=== PATIENT | female | born 1995 ===

== ENCOUNTER 2017-01-11 17:54 | Emergency (ER) | payer SELFPAY ==
[2017-01-11 18:00] VITALS: RESP 16; TEMP 98; O2SAT 100
[2017-01-11] MEDS ORDERED: Sodium Chloride 0.9% 1,000 ML IV STA (18:53)
--- NOTE | 2017-01-11 18:55 | ED PDOC ---
HPI: Psych/Substance Abuse Time Seen by Provider: 01/11/17 18:40 Chief Complaint (Nursing): Substance Abuse Chief Complaint (Provider): weakness History Per: Patient (21 y/o female here for feeling unwell after consumption of cookie baked with thc. Notes mild abdominal pain. Denies any vomiting. Denies any other co-ingestion.) Past Medical History Reviewed: Historical Data, Nursing Documentation, Vital Signs Vital Signs: Last Vital Signs Temp 98.0 F 01/11/17 17:58 Pulse 119 H 01/11/17 17:58 Resp 16 01/11/17 17:58 BP 109/63 01/11/17 17:58 Pulse Ox 100 01/11/17 17:58 - Family History Family History: States: Unknown Family Hx - Immunization History Hx Tetanus Toxoid Vaccination: No Hx Influenza Vaccination: Yes Hx Pneumococcal Vaccination: No - Home Medications Home Medications: Ambulatory Orders Medication Instructions Recorded Acetaminophen/Codeine 2 tab PO Q6H #20 tab 08/16/16 [Tylenol/Codeine 300 MG/30 MG] - Allergies Allergies/Adverse Reactions: Allergies Allergy/AdvReac Type Severity Reaction Status Date / Time No Known Allergies Allergy Verified 08/16/16 15:59 Review of Systems ROS Statement: Except As Marked, All Systems Reviewed And Found Negative Gastrointestinal: Positive for: Abdominal Pain Physical Exam - Reviewed Nursing Documentation Reviewed: Yes Vital Signs Reviewed: Yes - Physical Exam Appears: Positive for: Well, Non-toxic, No Acute Distress Head Exam: Positive for: ATRAUMATIC, NORMAL INSPECTION, NORMOCEPHALIC Skin: Positive for: Normal Color, Warm, DRY Eye Exam: Positive for: EOMI, Normal appearance, PERRL ENT: Positive for: Normal ENT Inspection Neck: Positive for: Normal, Painless ROM Cardiovascular/Chest: Positive for: Regular Rate, Rhythm Respiratory: Positive for: CNT, Normal Breath Sounds Gastrointestinal/Abdominal: Positive for: Normal Exam, Bowel Sounds, Soft Back: Positive for: Normal Inspection Extremity: Positive for: Normal ROM Neurologic/Psych: Positive for: Alert, Oriented - Laboratory Results Result Diagrams: 01/11/17 19:26 01/11/17 19:26 - ECG O2 Sat by Pulse Oximetry: 100 Disposition - Clinical Impression Clinical Impression: Marijuana use - Patient ED Disposition Is Patient to be Admitted: Transfer of Care - Disposition Disposition: Transfer of Care Disposition Time: 20:00 Condition: STABLE Instructions: Cannabis Abuse (ED) Forms: [facility] (Greenlandic) Patient Signed Over To: Shaista Sumner Handoff Comments: PENDING LABS/EKG/URINE PREG/RE-EVALUATION/IMPROVEMENT OF TACHYCARDIA
[2017-01-11 19:29] LABS: BASO % 0.5 % (0.0-2.0); EOS % 0.3 % (0.0-4.0); HEMATOCRIT 40.2 % (34.0-47.0); LYMPH # 1.1 K/uL (1.0-4.3); LYMPH % 14.2 % (20.0-40.0); MEAN CELL VOLUME 87.1 fl (81.0-99.0); MEAN CORPUSCULAR HEMOGLOBIN 29.7 pg (27.0-31.0); MEAN CORPUSCULAR HGB CONC 34.1 g/dL (33.0-37.0); MEAN PLATELET VOLUME 9.4 fl (7.2-11.7); MONO # 0.5 K/uL (0.0-0.8); MONO % 7.1 % (0.0-10.0); NEUT # 5.9 K/uL (1.8-7.0); NEUT % 77.9 % (50.0-75.0); WHITE BLOOD COUNT 7.6 K/uL (4.8-10.8)
[2017-01-11 19:40] LABS: ALB/GLOB RATIO 1.4 (1.0-2.1); ALCOHOL SERUM < 10 mg/dl (0-10); ALKALINE PHOSPHATASE 63 U/L (38-126); ALT/SGPT 29 U/L (9-52); AST/SGOT 19 U/L (14-36); BILIRUBIN,TOTAL 0.3 mg/dl (0.2-1.3); BLOOD UREA NITROGEN 18 mg/dl (7-17); CALCIUM 8.8 mg/dL (8.4-10.2); CARBON DIOXIDE 22 mmol/L (22-30); CHLORIDE 103 mmol/L (98-107); GFR AFRICAN-AMERICAN > 60; GLUCOSE,RANDOM 139 mg/dL (65-105); MAGNESIUM 1.8 MG/DL (1.6-2.3); POTASSIUM 4.1 MMOL/L (3.6-5.0); SODIUM 137 mmol/l (132-148); TOTAL PROTEIN 7.1 G/DL (6.3-8.2)
[2017-01-11 22:15] VITALS: PULSE 84
[2017-01-11 22:19] VITALS: BP 97/65
--- NOTE | 2017-01-11 23:56 | ED PDOC ---
- Laboratory Results Result Diagrams: 01/11/17 19:26 01/11/17 19:26 - ECG O2 Sat by Pulse Oximetry: 100 - Progress ED Course And Treament: pt signed out to sports book writer pending re-eval. pt consumed marijuana-felt very dizzy. 01/11/17 01/11/17 19:26 19:26 WBC 7.6 RBC 4.62 Hgb 13.7 Hct 40.2 MCV 87.1 MCH 29.7 MCHC 34.1 RDW 14.0 Plt Count 203 MPV 9.4 Neut % (Auto) 77.9 H Lymph % (Auto) 14.2 L [place] % (Auto) 7.1 Eos % (Auto) 0.3 Baso % (Auto) 0.5 Neut # 5.9 Lymph # 1.1 [place] # 0.5 Eos # 0.0 Baso # 0.0 Sodium 137 Potassium 4.1 Chloride 103 Carbon Dioxide 22 Anion Gap 15 BUN 18 H Creatinine 0.7 Est GFR ( Amer) > 60 Est GFR (Non-Af Amer) > 60 Random Glucose 139 H Calcium 8.8 Magnesium 1.8 Total Bilirubin 0.3 AST 19 ALT 29 Alkaline Phosphatase 63 Total Protein 7.1 Albumin 4.2 Globulin 2.9 Albumin/Globulin Ratio 1.4 Alcohol, Quantitative < 10 Medical Decision Making Medical Decision Making: pt improved VS improved .p[t feels well enough to go home. Vital Signs - 24 hr 01/11/17 01/11/17 01/11/17 17:58 19:30 22:15 Temperature 98.0 F Pulse Rate 119 H 84 Respiratory 16 16 Rate Blood Pressure 109/63 97/65 L O2 Sat by Pulse 100 100 100 Oximetry Disposition - Clinical Impression Clinical Impression: Marijuana use - POA Present On Arrival: None - Disposition Disposition: Routine/Home Disposition Time: 23:56 Condition: STABLE Instructions: Cannabis Abuse (ED) Forms: [employer] (German) Progress Note - Review of Symptoms General: No: Chills, Night Sweats, Fatigue, Malaise, Appetite, Other HEENT: No: Head Aches, Visual Changes, Eye Pain, Ear Pain, Dysphasia, Sinus Congestion, Post Nasal Drip, Sore Throat, Other Pulmonary: No: Dyspnea, Cough, Pleuritic Chest Pain, Other Cardiovascular: No: Chest Pain, Palpitations, Orthopnea, Paroxysmal Noc. Dyspnea , Edema, Light Headedness, Other Gastrointestinal: No: Nausea, Vomiting, Abdominal Pain, Diarrhea, Constipation, Melena, Hematochezia, Other Genitourinary: No: Dysuria, Frequency, Incontinence, Hematuria, Retention, Other Musculoskeletal: No: Muscle Pain, Joint Pain, Other Neurological: No: Weakness, Numbness, Incoordination, Change in speech, Confusion, Seizures, Other
--- NOTE | 2017-01-12 10:52 | CARD ---
APPROVED REPORT EKG Measurement Heart [id number] <Conclusion> Normal sinus rhythm Normal ECG
== END 2017-01-12 00:18 | disposition home or self-care (01) ==
LOC: H.ER 17:54
DX: F12.90 Cannabis use, unspecified, uncomplicated (principal); R53.1 Weakness
CPT/HCPCS: 80053; 81025; 83735; 85025; 93005; 96360; 99283; G0480; J7040